=== PATIENT | male | born 1980 | race Caucasian/White ===

== ENCOUNTER 2024-03-26 11:30 | Emergency (ER) | payer MEDICARE, SELFPAY ==
--- NOTE | ~2024-03-26 | XR_ITS ---
EXAMINATION: XR chest 1V portable DATE: 03/26/2024 13:23 INDICATION: Chest pain. TECHNIQUE: A single frontal view of the chest was obtained. COMPARISON: Chest 2 views 09/23/2008 FINDINGS: There is no pneumonia, pleural effusion, or pneumothorax. The heart size is normal. There i s dextroscoliosis of thoracic spine. There are fixation rods of the spine. IMPRESSION: 1. No acute cardiopulmonary disease. Reviewed, dictated and finalized at location A.
[2024-03-26 11:33] VITALS: BP 145/103; PULSE 138; RESP 22; TEMP 36.3; O2SAT 100
--- NOTE | 2024-03-26 11:42 | ECG_ITS ---
Test Date: 2024-03-26 11:52:08 Measurements Intervals [place]ver Rate: 114 P: 18 NC: 116 QRS: -12 QRSD: 95 T: 45 QT: 340 QTc: 470 Interpretive Statements SINUS TACHYCARDIA POSSIBLE LEFT ATRIAL ENLARGEMENT DELAYED PRECORDIAL R/S TRANSITION NONSPECIFIC ST & T-WAVE ABNORMALITY- LAT/HIGH LAT LEADS BASELINE WANDER- I, II, III, AVR, AVL, AVF, V1-V6 ABNORMAL ECG No previous ECG available for comparison Electronically Signed On 03-26-2024 12:00:41 CDT by Alin Aburto D.O.
[2024-03-26 12:46] VITALS: BP 141/99; PULSE 111; RESP 20; O2SAT 100
--- NOTE | 2024-03-26 13:01 | ED.RECABL ---
HPI - Recheck/Abnormal Lab/Rx General Chief Complaint: Recheck/Abnormal Lab/Rx Stated Complaint: htn Time Seen by Provider: 03/26/24 12:08 History of Present Illness HPI narrative: 44-year-old male with a history of hypertension, anxiety, osteogenesis imperfecta presenting with hypertension. States that he has been under a lot of stress lately and he feels like his anxiety has been worse. He felt ?off? several days ago so he checked his blood pressure and it was in the 180s systolic. States that he has been worried about his heart since that time. He denies any chest pain though he says he had some tingling in his chest which happens when he has panic attacks. No shortness of breath or leg swelling. No lightheadedness, diaphoresis, nausea. No numbness or weakness. States that he has been taking his Xanax more than normal lately due to his anxiety. Related Data Allergies Allergy/AdvReac Type Severity Reaction Status Date / Time erythromycin base AdvReac Unknown Nausea Verified 03/26/24 12:11 minocycline AdvReac Unknown Dizziness Verified 03/26/24 12:11 Review of Systems Review of Systems: All systems reviewed & are unremarkable except as noted in HPI and below PMFSH Past Medical History Medical History [facility] (2008) Surgical History Surgical History History of orchiectomy (2008) Right radical 2008 for [facility] History of spinal fusion (1999) Family History Family History Father Diabetes mellitus Mother Diabetes mellitus Social History Social History Smoking status: Never smoker Exam Narrative: GENERAL: Nontoxic, no acute distress, pleasant and cooperative HEAD: Normocephalic, atraumatic. EYES: PERRLA and EOMI. ENT: Mucous membranes moist. NECK: Supple. CHEST: Clear to auscultation. No respiratory distress. HEART: Tachycardic, regular rhythm ABDOMEN: Soft, nontender, nondistended EXTREMITIES: Normal range of motion. No edema. SKIN: Warm, dry, no rash. NEURO: No focal deficits. Alert and oriented x3. PSYCH: Normal mood and affect. Course Vital Signs Vital signs: Vital Signs Temperature 97.4 F L 03/26/24 11:33 Pulse Rate 138 H 03/26/24 11:33 Respiratory Rate 22 H 03/26/24 11:33 Blood Pressure 145/103 H 03/26/24 11:33 Pulse Oximetry 100 03/26/24 11:33 Oxygen Delivery Room Air 03/26/24 11:33 Temperature 97.4 F L 03/26/24 11:33 Pulse Rate 138 H 03/26/24 11:33 Respiratory Rate 22 H 03/26/24 11:33 Blood Pressure 145/103 H 03/26/24 11:33 Pulse Oximetry 100 03/26/24 11:33 Oxygen Delivery Room Air 03/26/24 11:33 MDM - Recheck/Abnormal Lab/Rx MDM Narrative Medical decision making narrative: 44-year-old male presenting with hypertension and anxiety. Patient a bit hypertensive on arrival, 140s over 100. Tachycardic in the 120s to 130s. Exam remarkable for the above. EKG per my interpretation shows sinus tachycardia, no ST elevations or depressions. Blood work with sodium of 129, potassium of 3.1. Concern for dehydration, patient states that he has not been drinking enough fluids. IV fluids are ongoing. Oral potassium repletion has been ordered. Troponin undetectable. Chest x-ray without acute abnormalities. On re-evaluation, the patient states that he is feeling better. Feel he is safe for outpatient management. Discussed appropriate outpatient follow-up and oral hydration. Appropriate return precautions given. Patient is agreeable this plan. Discharged in stable condition. Differential Diagnosis Differential diagnosis: Likely other (Hypertension, anxiety, panic attacks, electrolyte derangement, dehydration) Medical Records Attestation: I reviewed the patient's medical records. Lab Data Attestation: I reviewed the [facility]
[2024-03-26] MEDS: SODIUM CHLORIDE 0.9% IV 1,000 ML 999 ML IV CONT (13:02)
[2024-03-26] MEDS: LORazepam (*CRX) 0.5 MG TABLET PO (13:09)
[2024-03-26 13:16] VITALS: BP 142/96; PULSE 98; RESP 16; O2SAT 100
[2024-03-26 13:19] LABS: Basophils Percent Auto 0.5 % (0.2-1.2); Eosinophils Percent Auto 0.5 % (0-4.4); Hematocrit 52.6 % (42.0-52.0); Hemoglobin 19.1 g/dL (14.0-18.0); Immature Granulocyte Absolute 0.02 K/mm3 (0.00-0.031); Immature Granulocyte Percent A 0.3 % (0-0.5); Lymphocytes Absolute Auto 1.12 K/mm3 (0.9-3.2); Lymphocytes Percent Auto 18.7 % (18.3-44.2); Mean Corpuscular HGB Conc 36.3 g/dl (32-36); Mean Corpuscular Hemoglobin 33.6 pg (26-34); Mean Corpuscular Volume 92.6 fl (80-100); Mean Platelet Volume 8.8 fl (7.4-10.4); Monocytes Absolute Auto 0.5 K/mm3 (0.1-0.6); Monocytes Percent Auto 7.8 % (2.6-8.5); Neutrophils Absolute Auto 4.3 K/mm3 (1.3-6.7); Neutrophils Percent Auto 72.2 % (45.5-73.1); Platelet Count Result 349 k/mm3 (150-375); Red Blood Count 5.68 M/mm3 (4.6-6.20); Red Cell Distribution Width 12.6 % (11.5-14.5)
[2024-03-26 13:33] LABS: Alanine Aminotransferase 46 U/L (6-50); Albumin Level 5.5 g/dL (3.5-5.1); Alkaline Phosphatase 59 U/L (38-126); Anion Gap 22 mmol/L (4-12); Aspartate Amino Transferase 46 U/L (17-59); Bilirubin,Total 1.3 mg/dL (0.2-1.3); Blood Urea Nitrogen 17 mg/dL (9-20); Calcium 9.6 mg/dL (8.4-10.2); Carbon Dioxide 20 mmol/L (22-30); Chloride 87 mmol/L (98-107); Estimated Glomerular Filt Rate > 60; Glucose 114 mg/dL (65-110); Potassium 3.1 mmol/L (3.4-5.0); Sodium 129 mmol/L (137-145)
[2024-03-26 13:44] LABS: Troponin I < 0.012 ng/mL (0.000-0.034)
[2024-03-26 14:01] VITALS: BP 131/98; PULSE 93; RESP 18; O2SAT 100
[2024-03-26] MEDS: POTASSIUM CHLORIDE 20 MEQ ER TABLET 40 MEQ PO (14:48)
[2024-03-26 15:01] VITALS: BP 124/98; PULSE 103; RESP 20; O2SAT 100
[2024-03-26 15:31] VITALS: BP 148/99; PULSE 100; RESP 18; O2SAT 97
== END 2024-03-26 16:00 | disposition home or self-care (01) ==
PROVIDERS: Emergency Provider Emergency Medicine; PCP Family Medicine Adolescent Medicine
DX: I10 Essential (primary) hypertension (principal); E87.6 Hypokalemia; F41.9 Anxiety disorder, unspecified; Z90.79 Acquired absence of other genital organ(s); Z98.1 Arthrodesis status; Z79.899 Other long term (current) drug therapy
CPT/HCPCS: 36415; 71045; 80053; 84484; 85025; 93005; 96360; 99284; A9270; J7030